=== PATIENT | male | born 1985 | race Caucasian/White ===

== ENCOUNTER 2016-12-20 10:05 | Emergency (ER) | payer OTHER ==
[2016-12-20] MEDS ORDERED: HYDROmorphone 1 MG/ML SYRINGE IVP STA ×2 (10:52→12:21)
[2016-12-20] MEDS ORDERED: KETOROLAC 60 MG/2 ML VIAL IVP STA (10:52)
[2016-12-20] MEDS ORDERED: diazePAM INJ 5 MG/ML SYRINGE IVP STA (10:52)
[2016-12-20] MEDS ORDERED: KETOROLAC 30 MG/ML VIAL ONE (11:10)
[2016-12-20] MEDS ORDERED: HYDROmorphone 1 MG/ML SYRINGE ONE ×2 (11:10→12:30)
[2016-12-20] MEDS ORDERED: diazePAM INJ 5 MG/ML SYRINGE ONE (11:11)
[2016-12-20] MEDS ORDERED: metroNIDAZOLE 250 MG TABLET PO STA (12:22)
[2016-12-20] MEDS ORDERED: DIPHENOX/ATROPINE 2.5/0.025 MG TABLET PO STA (12:22)
[2016-12-20] MEDS ORDERED: DIPHENOX/ATROPINE 2.5/0.025 MG TABLET PO ONE (12:30)
[2016-12-20] MEDS ORDERED: metroNIDAZOLE 250 MG TABLET PO ONE (12:30)
== END 2016-12-20 13:18 | disposition home or self-care (01) ==
DX: M54.5 Low back pain (principal); G89.29 Other chronic pain; W01.0XXA Fall on same level from slipping, tripping and stumbling without subsequent striking against object, initial encounter; Y92.017 Garden or yard in single-family (private) house as the place of occurrence of the external cause; R19.7 Diarrhea, unspecified; I10 Essential (primary) hypertension; Z87.891 Personal history of nicotine dependence
CPT/HCPCS: 36415; 72100; 80053; 81003; 83690; 96374; 96375; 96376; 99283; 99284; A9270; J1170

== ENCOUNTER 2017-05-18 20:28 | Emergency (ER) | payer OTHER ==
[2017-05-18 20:46] VITALS: BP 137/80
[2017-05-18] MEDS ORDERED: KETOROLAC 60 MG/2 ML VIAL IM STA (21:05)
[2017-05-18] MEDS ORDERED: CYCLOBENZAPRINE 10 MG TABLET PO STA (21:06)
[2017-05-18] MEDS ORDERED: CYCLOBENZAPRINE 10 MG TABLET PO ONE (21:20)
[2017-05-18] MEDS ORDERED: KETOROLAC 60 MG/2 ML VIAL ONE (21:20)
--- NOTE | 2017-05-18 22:10 | XRAY Preliminary Report ---
Exam: XR Knee 3 View RT IMPRESSION: 1. Lateral tilting of the patella and probable joint effusion. 2. No fracture seen. [facility] SITE ID: [id number]
--- NOTE | 2017-05-18 22:12 | XRAY Report ---
EXAM: RIGHT KNEE RADIOGRAPHY EXAM DATE: 05/18/2017 09:30 PM. CLINICAL HISTORY: Fell, twisted knee, worsening pain. COMPARISON: None. TECHNIQUE: 3 views. FINDINGS: Bones: No acute fracture seen. Joints: Lateral tilting of the patella. No orin dislocation. Probable joint effusion. No significant joint space narrowing. Soft Tissues: Mild soft tissue swelling. IMPRESSION: 1. Lateral tilting of the patella and probable joint effusion. 2. No fracture seen. [facility] Referring Provider Line: [phone] SITE ID: [id number]
--- NOTE | 2017-05-19 21:36 | ED Physician Documentation ---
PD HPI BACK PAIN - Stated complaint Stated Complaint: BACK/KNEE PX - Chief complaint Chief Complaint: Back Pain - History obtained from History obtained from: Patient, Friend - History of Present Illness Timing - onset: How many days ago (2) Timing - details: Abrupt onset, Still present Location: Lower, Right Quality: Pain, Spasm, Similar to prior episodes Associated symptoms: No: Fever, Weakness, Numbness, Incontinent of urine, Incontinent of stool Worsened by: Movement Contributing factors: Other (fall) Similar symptoms before: Work up / diagnostics, Treatment, Follow up Recently seen: Clinic - Additional information Additional information: Patient is a 31 year old male with a history of chronic back pain, and multiple back surgeries who is presenting to the emergency department for back pain. patient states that he stepped in a hole a few days ago and fell hurting his right knee and causing his back to spasm. Review of Systems Constitutional: denies: Fever, Chills, Myalgias Eyes: denies: Loss of vision Ears: denies: Ear pain, Drainage/discharge Nose: denies: Rhinorrhea / runny nose, Congestion Cardiac: denies: Chest pain / pressure, Palpitations Respiratory: denies: Cough GI: denies: Nausea, Vomiting : denies: Dysuria, Unable to Void, Incontinent Skin: denies: Rash, Lesions, Abrasion (s) Musculoskeletal: reports: Back pain, Extremity pain, Joint pain, Joint swelling Neurologic: denies: Generalized weakness, Focal weakness, Numbness, Headache, Head injury, LOC Immunocompromised: denies: Immunocompromised PD PAST MEDICAL HISTORY - Past Medical History Past Medical History: Yes Cardiovascular: Hypertension Respiratory: None Neuro: None Endocrine/Autoimmune: None GI: None : None HEENT: None Psych: Anxiety, ADD/ADHD, Post traumatic stress disorder Musculoskeletal: Chronic back pain Derm: None - Past Surgical History Past Surgical History: Yes General: Appendectomy Ortho: Spine surgery - Present Medications Home Medications: Ambulatory Orders Medication Instructions Recorded Confirmed LORazepam [Ativan] 1 tab PO DAILY 05/18/17 05/18/17 Olanzapine 10 mg PO DAILY 05/18/17 05/18/17 Pregabalin [Lyrica] 50 mg PO TID 05/18/17 05/18/17 Sertraline HCl [Zoloft] 100 mg PO DAILY 05/18/17 05/18/17 - Allergies Allergies/Adverse Reactions: Allergies Allergy/AdvReac Type Severity Reaction Status Date / Time amoxicillin trihydrate * Allergy Nausea Verified 05/18/17 20:46 [From Augmentin] potassium clavulanate * Allergy Nausea Verified 05/18/17 20:46 [From Augmentin] - Social History Does the pt smoke?: Yes Smoking Status: Former smoker Does the pt drink ETOH?: Yes Does the pt have substance abuse?: No - Immunizations Immunizations are current?: Yes - POLST Patient has POLST: No PD ED PE NORMAL - Vitals Vital signs reviewed: Yes - General General: Alert and oriented X 3, Well developed/nourished - HEENT HEENT: Atraumatic, PERRL - Neck Neck: Supple, no meningeal sign - Cardiac Cardiac: RRR, No murmur - Respiratory Respiratory: No respiratory distress - Abdomen Abdomen: Soft - Derm Derm: Normal color, Warm and dry, No rash - Neuro Neuro: Alert and oriented X 3, No motor deficit, No sensory deficit, Normal speech PD ED PE EXPANDED - Back Back: Soft tissue tenderness (tenderness to palpation of right paraspinal lumbar muscles) - Extremities Extremities: Right knee (right knee pain and swelling) Results - Vitals Vitals: Oxygen O2 Source Room air - Rads (name of study) knee x-ray Radiology: Final report received (no acute fracture or dislocation) PD MEDICAL DECISION MAKING - ED course Complexity details: reviewed old records, reviewed results, re-evaluated patient , d/w patient ED course: Patient was seen and examined at bedside. Patient was treated with toradol and flexeril. Imaging was ordered. When patient returned from imaging the results were reviewed. Patient stated that he was still in pain. patient was told that he would not be prescribed narcotics. Patient stated he was leaving and got up and walked out. Departure - Departure Disposition: Against Medical Advice Clinical Impression: Lumbosacral radiculopathy at L5 Condition: Stable Instructions: ED Low Back Pain Injury Discharge Date/Time: 05/18/17 22:11
== END 2017-05-18 22:11 | disposition left against medical advice (07) ==
LOC: ED 20:28
DX: M54.17 Radiculopathy, lumbosacral region (principal); Z53.29 Procedure and treatment not carried out because of patient's decision for other reasons; I10 Essential (primary) hypertension; Z87.891 Personal history of nicotine dependence
CPT/HCPCS: 73562; 96372; 99282; 99283; A9270

== ENCOUNTER 2017-07-23 16:27 | Emergency (ER) | payer OTHER ==
[2017-07-23] MEDS ORDERED: LIDOCAINE 1%-EPI 1:100000 20 ML MDV SUBQ STA (17:30)
--- NOTE | 2017-07-23 17:30 | ED Physician Documentation ---
PD HPI Fall - Stated complaint Stated Complaint: HEAD INJ - Chief complaint Chief Complaint: Trauma Hd/Nk - History obtained from History obtained from: Patient - History of Present Illness Mechanism of injury: Tripped (he lost balance and fell backward on stairs, striking back of head and thoracolumbar area of back. Has underlying lumbar pain but is having considerable pain over baseline with this, and in area higher than usual (typically just low lumbar).) Fall distance: Standing position Timing - onset: Today Injury(ies) location: Head, Back. No: Neck, Chest, Abdomen Quality of pain: Pain Associated symptoms: AMS (felt dazed for few minutes.). No: LOC, Neck pain, Weakness, Paresthesias Worsens with: Movement Contributing factors: No: Anticoagulated, Intoxicated Recently seen: Not recently seen Review of Systems Constitutional: denies: Fever Nose: denies: Rhinorrhea / runny nose, Congestion Throat: denies: Sore throat Cardiac: denies: Chest pain / pressure Respiratory: denies: Cough GI: denies: Abdominal Pain, Nausea, Vomiting, Diarrhea : denies: Dysuria, Incontinent Skin: denies: Abrasion (s), Laceration (s) Neurologic: reports: Numbness (some down left leg laterally and thigh, chronically though.), Headache, Head injury. denies: Focal weakness, Syncope, LOC PD PAST MEDICAL HISTORY - Past Medical History Cardiovascular: Hypertension Respiratory: None Neuro: None Endocrine/Autoimmune: None GI: None : None HEENT: None Psych: Anxiety, ADD/ADHD, Post traumatic stress disorder Musculoskeletal: Chronic back pain (he is on disability due to low back pain and is on daily pain meds.) Derm: None - Past Surgical History Past Surgical History: Yes General: Appendectomy Ortho: Spine surgery - Present Medications Home Medications: Ambulatory Orders Medication Instructions Recorded Confirmed LORazepam [Ativan] 1 tab PO DAILY 05/18/17 05/18/17 Olanzapine 10 mg PO DAILY 05/18/17 05/18/17 Pregabalin [Lyrica] 50 mg PO TID 05/18/17 05/18/17 Sertraline HCl [Zoloft] 100 mg PO DAILY 05/18/17 05/18/17 Lidocaine Patch 5% [Lidoderm Patch] 1 each TOP DAILY #10 patch 07/23/17 Methocarbamol [Robaxin] 500 mg PO Q6H PRN #30 tablet 07/23/17 Oxycodone HCl/Acetaminophen 1 each PO QID PRN #24 tablet 07/23/17 [Percocet 10-325 mg Tablet] - Allergies Allergies/Adverse Reactions: Allergies Allergy/AdvReac Type Severity Reaction Status Date / Time amoxicillin trihydrate * Allergy Nausea Verified 05/18/17 20:46 [From Augmentin] potassium clavulanate * Allergy Nausea Verified 05/18/17 20:46 [From Augmentin] - Social History Does the pt smoke?: No Smoking Status: Former smoker Does the pt drink ETOH?: Yes Does the pt have substance abuse?: Yes Substance Use and Type: Marijuana - Immunizations Immunizations are current?: Yes - POLST Patient has POLST: No PD ED PE NORMAL - Vitals Vital signs reviewed: Yes - General General: Alert and oriented X 3, Well developed/nourished - HEENT HEENT: PERRL, EOMI, Other (tender back of head with local swelling. No bleeding. ) - Neck Neck: Supple, no meningeal sign, No bony TTP, No adenopathy - Cardiac Cardiac: RRR, No murmur - Respiratory Respiratory: Clear bilaterally - Abdomen Abdomen: Soft, Non tender - Back Back: No CVA TTP, Other (tender in lower thoracic and most of lumbar area without obvious bruising. Guarded ROM of the lower back and mid back. ) - Derm Derm: Normal color, Warm and dry - Extremities Extremities: No tenderness to palpate, Normal ROM s pain - Neuro Neuro: Alert and oriented X 3, No motor deficit, No sensory deficit, Other ( knee reflexes present and symmetric. ) Results - Vitals Vitals: Oxygen O2 Source Room air - Rads (name of study) head CT Radiology: Prelim report reviewed (no acute process) thoracic and lumbar spines Radiology: Prelim report reviewed (no fractures) PD MEDICAL DECISION MAKING - ED course Complexity details: reviewed results, considered differential (has underlying low back pain, with fall and is in such pain/distress that hard to tell if new injury v.s exac chronic. Got CTs thoracolumbar where he hurts. No fractures. Normal head CT as well. Given pain meds in ED and short term for his new injury , which presume would be short term from fall. ), d/w patient Departure - Departure Disposition: 01 Home, Self Care Clinical Impression: Acute exacerbation of chronic low back pain Fall from slip, trip, or stumble Qualifiers: Encounter type: initial encounter Qualified Code(s): W01.0XXA - Fall on same level from slipping, tripping and stumbling without subsequent striking against object, initial encounter Head contusion Qualifiers: Encounter type: initial encounter Contusion of head detail: scalp Qualified Code(s): S00.03XA - Contusion of scalp, initial encounter Condition: Stable Record reviewed to determine appropriate education?: Yes Instructions: ED Low Back Pain Injury, ED Contusion Scalp Prescriptions: Lidocaine Patch 5% [Lidoderm Patch] 1 each TOP DAILY #10 patch Methocarbamol [Robaxin] 500 mg PO Q6H PRN #30 tablet PRN Reason: Spasms Oxycodone HCl/Acetaminophen [Percocet 10-325 mg Tablet] 1 each PO QID PRN #24 tablet PRN Reason: Pain Comments: Continue usual medications. Percocet if needed for pain as a day to try to use less if possible. Robaxin muscle relaxant 4 times a day if needed for spasms. Lidocaine patches topically to the low back daily. Follow-up with your primary care regarding follow-up and further medications. Discharge Date/Time: 07/23/17 20:46
[2017-07-23] MEDS ORDERED: LIDOCAINE MPF 1%-EPI 1:200000 30 ML VIAL ONE (17:36)
[2017-07-23] MEDS ORDERED: diazePAM 5 MG TABLET PO STA (17:56)
[2017-07-23] MEDS ORDERED: KETOROLAC 30 MG/ML VIAL IM STA (17:56)
[2017-07-23] MEDS ORDERED: HYDROmorphone 1 MG/ML CARPUJECT IM STA ×2 (17:56→19:25)
[2017-07-23] MEDS ORDERED: KETOROLAC 30 MG/ML VIAL ONE (18:09)
[2017-07-23] MEDS ORDERED: HYDROmorphone 1 MG/ML CARPUJECT ONE ×2 (18:09→19:37)
[2017-07-23] MEDS ORDERED: diazePAM 5 MG TABLET PO ONE (18:09)
--- NOTE | 2017-07-23 19:42 | CT Preliminary Report ---
Exam: CT Lumbar Spine W/O IMPRESSION: No evidence of lumbar spine fracture or dislocation. [facility] SITE ID: [id number]
--- NOTE | 2017-07-23 19:43 | CT Report ---
EXAM: CT LUMBAR SPINE WITHOUT CONTRAST EXAM DATE: 07/23/2017 07:05 PM. CLINICAL HISTORY: Back pain COMPARISONS: 12/20/2016. TECHNIQUE: Thin-section axial images were acquired of the lumbar spine from T12 to S1 without contras t. Post-processing: Coronal and sagittal reformats. Other: None. In accordance with CT protocol optimization, one or more of the following dose reduction techniques w ere utilized for this exam: automated exposure control, adjustment of mA and/or KV based on patient s ize, or use of iterative reconstructive technique. FINDINGS: Alignment: Normal. No scoliosis or spondylolisthesis. Bones: Five [id number] lumbar vertebral bodies are present. No fractures or bone lesions. Disk Levels/Facets: T12-L1: Unremarkable. L1-L2: Unremarkable. L2-L3: Unremarkable. L3-L4: Unremarkable. L4-L5: Unremarkable. L5-S1: Unremarkable. Musculature: Normal. No fatty atrophy. Other: There is hepatic steatosis. IMPRESSION: No evidence of lumbar spine fracture or dislocation. [facility] Referring Provider Line: [phone] SITE ID: [id number]
--- NOTE | 2017-07-23 19:44 | CT Preliminary Report ---
Exam: CT Thoracic Spine W/O IMPRESSION: No evidence of thoracic spine fracture or dislocation. [facility] SITE ID: [id number]
--- NOTE | 2017-07-23 19:46 | CT Preliminary Report ---
Exam: CT Head W/O IMPRESSION: No acute intracranial CT abnormality. [facility] SITE ID: [id number]
--- NOTE | 2017-07-23 19:46 | CT Report ---
EXAM: CT THORACIC SPINE WITHOUT CONTRAST EXAM DATE: 07/23/2017 07:05 PM. CLINICAL HISTORY: Fell back onto buttock, with back pain. COMPARISONS: None. TECHNIQUE: Thin-section axial images were acquired of the thoracic spine from C7 to L1 without contra st. Post-processing: Coronal and sagittal reformats. Other: None. In accordance with CT protocol optimization, one or more of the following dose reduction techniques w ere utilized for this exam: automated exposure control, adjustment of mA and/or KV based on patient s ize, or use of iterative reconstructive technique. FINDINGS: Alignment: No evidence of dislocation. Bones: No fracture or bone lesion. Disk Levels/Facets: No significant degenerative disease. Musculature: Normal. No fatty atrophy. Other: The visualized lungs, mediastinum, and abdominal cavity are unremarkable. IMPRESSION: No evidence of thoracic spine fracture or dislocation. [facility] Referring Provider Line: [phone] SITE ID: [id number]
--- NOTE | 2017-07-23 19:49 | CT Report ---
EXAM: CT HEAD EXAM DATE: 07/23/2017 06:21 PM. CLINICAL HISTORY: Fell back and struck head. COMPARISON: 03/22/2013. TECHNIQUE: Multiaxial CT images were obtained from the foramen magnum to the vertex. IV contrast: Non e. Reformats: Coronal. In accordance with CT protocol optimization, one or more of the following dose reduction techniques w ere utilized for this exam: automated exposure control, adjustment of mA and/or KV based on patient s ize, or use of iterative reconstructive technique. FINDINGS: Parenchyma: No intraparenchymal hemorrhage. No evidence of mass, midline shift, or CT findings of inf arction. George-white differentiation is distinct. Extraaxial Spaces: Normal for age. No subdural or epidural collections identified. Ventricles: Normal in size and position. Sinuses: Imaged paranasal sinuses, orbits, and mastoids show no significant abnormality. Bones: No evidence of fracture or calvarial defect. Other: None. IMPRESSION: No acute intracranial CT abnormality. [facility] Referring Provider Line: [phone] SITE ID: [id number]
[2017-07-23 20:47] VITALS: BP 135/82
== END 2017-07-23 20:46 | disposition home or self-care (01) ==
LOC: ED 16:27
DX: S00.03XA Contusion of scalp, initial encounter (principal); W01.198A Fall on same level from slipping, tripping and stumbling with subsequent striking against other object, initial encounter; M54.5 Low back pain; G89.29 Other chronic pain; I10 Essential (primary) hypertension; Z87.891 Personal history of nicotine dependence
CPT/HCPCS: 70450; 72128; 72131; 96372; 99283; 99284; A9270; J1170

== ENCOUNTER 2018-02-18 11:27 | Emergency (ER) | payer OTHER ==
[2018-02-18] MEDS ORDERED: MORPHINE 2 MG/ML SYRINGE IM STA (11:50)
[2018-02-18] MEDS ORDERED: CYCLOBENZAPRINE 10 MG TABLET PO STA (11:51)
[2018-02-18] MEDS ORDERED: DEXAMETHASONE 10 MG/ML VIAL PO STA (11:51)
--- NOTE | 2018-02-18 11:53 | ED Physician Documentation ---
History of Present Illness - Stated complaint Stated Complaint: FELL LOW BACK PX - Chief complaint Chief Complaint: Back Pain - Additonal information Additional information: 32 male hx back pain several prior surgeries has a senior technical specialist in [facility] appt February 26 was walking dog and stepped in hole and fell on side and aggravated his back pain no HI or neck pain no numbness or weakness no incontinence has numbness to inner thigh and calf R leg which is not new for him no fever no IV meds drugs no recent dental work or surgery hopes to get a MRI today takes motrin percocet and lido patches at home already Review of Systems Constitutional: denies: Fever Cardiac: denies: Chest pain / pressure Respiratory: denies: Dyspnea GI: denies: Abdominal Pain : denies: Incontinent, Hematuria Musculoskeletal: reports: Back pain Endocrine: denies: Easy bruising / bleeding Immunocompromised: denies: Immunocompromised PD PAST MEDICAL HISTORY - Past Medical History Cardiovascular: Hypertension Respiratory: None Neuro: None Endocrine/Autoimmune: None GI: None : None HEENT: None Psych: Anxiety, ADD/ADHD, Post traumatic stress disorder Musculoskeletal: Chronic back pain Derm: None - Past Surgical History Past Surgical History: Yes General: Appendectomy Ortho: Spine surgery - Present Medications Home Medications: Ambulatory Orders Medication Instructions Recorded Confirmed LORazepam [Ativan] 1 tab PO DAILY 05/18/17 05/18/17 OLANZapine [Olanzapine] 10 mg PO DAILY 05/18/17 05/18/17 Pregabalin [Lyrica] 50 mg PO TID 05/18/17 05/18/17 Sertraline HCl [Zoloft] 100 mg PO DAILY 05/18/17 05/18/17 Lidocaine Patch 5% [Lidoderm Patch] 1 each TOP DAILY #10 patch 07/23/17 Methocarbamol [Robaxin] 500 mg PO Q6H PRN #30 tablet 07/23/17 Oxycodone HCl/Acetaminophen 1 each PO QID PRN #24 tablet 07/23/17 [Percocet 10-325 mg Tablet] Carisoprodol [Soma] 350 mg PO Q8H PRN #15 tablet 02/18/18 predniSONE [Deltasone] 40 mg PO DAILY 5 Days tablet 02/18/18 - Allergies Allergies/Adverse Reactions: Allergies Allergy/AdvReac Type Severity Reaction Status Date / Time amoxicillin trihydrate * Allergy Nausea Verified 05/18/17 20:46 [From Augmentin] potassium clavulanate * Allergy Nausea Verified 05/18/17 20:46 [From Augmentin] - Social History Does the pt smoke?: No Smoking Status: Never smoker Does the pt drink ETOH?: Yes Does the pt have substance abuse?: Yes - Immunizations Immunizations are current?: Yes - POLST Patient has POLST: No PD ED PE NORMAL - Vitals Vital signs reviewed: Yes - Cardiac Cardiac: RRR - Respiratory Respiratory: No respiratory distress, Clear bilaterally - Abdomen Abdomen: Soft, Non tender, Other (no pulsatile mass) - Back Back: No spinal TTP, Other (diffuse soft tissue TTP but no focal spine TTP redness or swelling or warmth) - Neuro Neuro: Other (hip flexion knee ext foot dorsi plantar and great toe ext 5/5, patellar DTR 2/2 no ankle clonus, denies saddle anesthesia) Results - Vitals Vitals: Vital Signs - 24 hr 02/18/18 02/18/18 11:31 13:32 Temperature 36.4 C L 36.5 C Heart Rate 101 H 91 Respiratory 16 20 Rate Blood Pressure 155/87 H 137/75 H O2 Saturation 98 97 Oxygen O2 Source Room air Departure - Departure Disposition: Home, Self Care Clinical Impression: Back pain Qualifiers: Back pain location: low back pain Chronicity: acute Back pain laterality: right Sciatica presence: with sciatica Sciatica laterality: sciatica of right side Qualified Code(s): M54.41 - Lumbago with sciatica, right side Condition: Good Instructions: ED Sciatica, ED Low Back Pain Injury Prescriptions: Carisoprodol [Soma] 350 mg PO Q8H PRN #15 tablet PRN Reason: muscle spasm predniSONE [Deltasone] 40 mg PO DAILY 5 Days tablet Comments: Continue the percocet. And the lidocaine patches Take the prednisone which is a steroid to decrease nerve inflammation - do not take motrin while taking the prednisone And try the some which is a muscle relaxant Follow up with your senior technical specialist 02/26 as planned Return if worse
[2018-02-18 13:33] VITALS: BP 137/75
[2018-02-18] MEDS ORDERED: oxyCODONE 5 MG TABLET PO STA (13:34)
== END 2018-02-18 13:41 | disposition home or self-care (01) ==
LOC: ED 11:27
DX: M54.41 Lumbago with sciatica, right side (principal); Z91.81 History of falling; I10 Essential (primary) hypertension
CPT/HCPCS: 96372; 99283; A9270; J2270

== ENCOUNTER 2018-08-05 18:24 | Emergency (ER) | payer OTHER ==
[2018-08-05 19:02] VITALS: BP 150/73
[2018-08-05] MEDS ORDERED: HYDROcod/ACETAM 10 MG/325 MG TABLET PO STA (19:16)
--- NOTE | 2018-08-05 19:20 | ED Physician Documentation ---
History of Present Illness - Stated complaint Stated Complaint: MED REFILL - Chief complaint Chief Complaint: General - Additonal information Additional information: 33-year-old male presented to the emergency department requesting a refill of his chronic pain medication. The patient has no acute complaints and only is requesting refills of his narcotic pain medication. Review of Systems Constitutional: denies: Fever Cardiac: denies: Chest pain / pressure Respiratory: denies: Cough GI: denies: Abdominal Pain PD PAST MEDICAL HISTORY - Past Medical History Past Medical History: Yes Cardiovascular: Hypertension Respiratory: None Neuro: None Endocrine/Autoimmune: None GI: None : None HEENT: None Psych: Anxiety, ADD/ADHD, Post traumatic stress disorder Musculoskeletal: Chronic back pain Derm: None - Past Surgical History Past Surgical History: Yes General: Appendectomy Ortho: Spine surgery - Present Medications Home Medications: Ambulatory Orders Medication Instructions Recorded Confirmed LORazepam [Ativan] 1 tab PO DAILY 05/18/17 05/18/17 OLANZapine [Olanzapine] 10 mg PO DAILY 05/18/17 05/18/17 Pregabalin [Lyrica] 50 mg PO TID 05/18/17 05/18/17 Sertraline HCl [Zoloft] 100 mg PO DAILY 05/18/17 05/18/17 Lidocaine Patch 5% [Lidoderm Patch] 1 each TOP DAILY #10 patch 07/23/17 Methocarbamol [Robaxin] 500 mg PO Q6H PRN #30 tablet 07/23/17 Oxycodone HCl/Acetaminophen 1 each PO QID PRN #24 tablet 07/23/17 [Percocet 10-325 mg Tablet] Carisoprodol [Soma] 350 mg PO Q8H PRN #15 tablet 02/18/18 predniSONE [Deltasone] 40 mg PO DAILY 5 Days tablet 02/18/18 - Allergies Allergies/Adverse Reactions: Allergies Allergy/AdvReac Type Severity Reaction Status Date / Time amoxicillin trihydrate * Allergy Nausea Verified 08/05/18 19:02 [From Augmentin] potassium clavulanate * Allergy Nausea Verified 08/05/18 19:02 [From Augmentin] - Social History Does the pt smoke?: No Smoking Status: Never smoker Does the pt drink ETOH?: Yes Does the pt have substance abuse?: Yes - Immunizations Immunizations are current?: Yes - POLST Patient has POLST: No PD ED PE NORMAL - General General: Alert and oriented X 3 - HEENT HEENT: Atraumatic - Respiratory Respiratory: No respiratory distress - Neuro Neuro: Alert and oriented X 3, Normal speech Results - Vitals Vitals: Vital Signs - 24 hr 08/05/18 18:59 Temperature 36.6 C Heart Rate 88 Respiratory 16 Rate Blood Pressure 150/73 H O2 Saturation 97 Oxygen O2 Source Room air PD MEDICAL DECISION MAKING - ED course ED course: I declined to refill the patient's narcotic pain medication. I did give the patient 1 dose of hydrocodone in the emergency department and explained that we do not refill chronic pain medications in the emergency department. The patient was upset. I recommended following up with his prescriber tomorrow. I discussed warning signs and recommended returning for any worsening or any concerns. Departure - Departure Disposition: 01 Home, Self Care Clinical Impression: Request for narcotic pain medication Condition: Good Instructions: Chronic Pain Comments: Please contact your prescribing physician for refills of your narcotic pain medications. Please return to the emergency department for any worsening or concerns
== END 2018-08-05 19:27 | disposition home or self-care (01) ==
LOC: ED 18:24
DX: M54.9 Dorsalgia, unspecified (principal); G89.29 Other chronic pain; I10 Essential (primary) hypertension
CPT/HCPCS: 99281; 99282; A9270

== ENCOUNTER 2019-06-16 18:39 | Emergency (ER) | payer OTHER ==
[2019-06-16] MEDS ORDERED: CYCLOBENZAPRINE 10 MG TABLET PO STA (19:32)
[2019-06-16] MEDS ORDERED: MELOXICAM 7.5 MG TABLET PO STA (19:32)
--- NOTE | 2019-06-16 19:33 | XRAY Report ---
Reason: fall, L ankle pain Procedure Date: 06/16/2019 Accession Number: [id number] / [id number] Procedure: XR - Ankle 3 View LT CPT Code: FULL RESULT: EXAM: LEFT ANKLE RADIOGRAPHY EXAM DATE: 06/16/2019 07:14 PM. CLINICAL HISTORY: Fall with twisting injury earlier today. Pain and swelling. COMPARISON: None. TECHNIQUE: 3 views. FINDINGS: Bones: Linear lucency extending in the oblique coronal plane through the posterior margin of the talus. Joints: Normal. No effusion. No subluxations. The ankle mortise is normally aligned. Soft Tissues: Normal. No soft tissue swelling. IMPRESSION: Possible hairline fracture posterior margin of the talus versus an unusual os tibialis. Correlate clinically to determine significance. [facility]
--- NOTE | 2019-06-16 19:34 | ED Physician Documentation ---
PD HPI LOWER EXT INJURY - Stated complaint Stated Complaint: L ANKLE INJURY - Chief complaint Chief Complaint: Ext Problem - History obtained from History obtained from: Patient, Family - History of Present Illness PD HPI LOW EXT INJURY LOCATION: Left, Ankle Type of injury: Twist Where injury occurred: Street Timing - onset: How many hours ago (1) Timing - duration: Hours (1) Timing - details: Abrupt onset Pain level max: 6 Pain level now: 5 Improved by: Rest, Ice, Immobilization Worsened by: Moving, Palpating Associated symptoms: No: Weakness, Numbness, Tingling, Swelling Contributing factors: No: Anticoagulated Recently seen: Not recently seen - Additional information Additional information: tripped and fell Review of Systems Constitutional: denies: Fever, Chills GI: denies: Vomiting, Diarrhea Skin: denies: Rash Musculoskeletal: denies: Neck pain, Back pain Neurologic: denies: Headache PD PAST MEDICAL HISTORY - Past Medical History Cardiovascular: Hypertension Respiratory: None Neuro: None Endocrine/Autoimmune: None GI: None : None HEENT: None Psych: Anxiety, ADD/ADHD, Post traumatic stress disorder Musculoskeletal: Chronic back pain Derm: None - Past Surgical History Past Surgical History: Yes General: Appendectomy Ortho: Spine surgery - Present Medications Home Medications: Ambulatory Orders Medication Instructions Recorded Confirmed LORazepam [Ativan] 1 tab PO DAILY 05/18/17 05/18/17 OLANZapine [Olanzapine] 10 mg PO DAILY 05/18/17 05/18/17 Pregabalin [Lyrica] 50 mg PO TID 05/18/17 05/18/17 Sertraline HCl [Zoloft] 100 mg PO DAILY 05/18/17 05/18/17 Lidocaine Patch 5% [Lidoderm Patch] 1 each TOP DAILY #10 patch 07/23/17 Methocarbamol [Robaxin] 500 mg PO Q6H PRN #30 tablet 07/23/17 Oxycodone HCl/Acetaminophen 1 each PO QID PRN #24 tablet 07/23/17 [Percocet 10-325 mg Tablet] Carisoprodol [Soma] 350 mg PO Q8H PRN #15 tablet 02/18/18 predniSONE [Deltasone] 40 mg PO DAILY 5 Days tablet 02/18/18 Meloxicam [Mobic] 15 mg PO DAILY PRN #20 tablet 06/16/19 Oxycodone HCl/Acetaminophen 1 - 2 each PO Q6H PRN #20 tablet 06/16/19 [Percocet 5-325 mg Tablet] - Allergies Allergies/Adverse Reactions: Allergies Allergy/AdvReac Type Severity Reaction Status Date / Time amoxicillin trihydrate * Allergy Nausea Verified 06/16/19 18:58 [From Augmentin] potassium clavulanate * Allergy Nausea Verified 06/16/19 18:58 [From Augmentin] - Social History Does the pt smoke?: No Smoking Status: Never smoker Does the pt drink ETOH?: Yes Does the pt have substance abuse?: Yes - Immunizations Immunizations are current?: Yes - POLST Patient has POLST: No PD ED PE NORMAL - Vitals Vital signs reviewed: Yes - General General: Alert and oriented X 3, No acute distress - HEENT HEENT: Moist mucous membranes - Neck Neck: Supple, no meningeal sign - Derm Derm: Warm and dry - Extremities Extremities: Other (L ankle - mild TTP distal fibula and lateral malleolus. nvi. normal foot and knee. also TTP posterior talus. o/w normal ankle exam. ) - Neuro Neuro: Alert and oriented X 3 - Psych Psych: Normal mood, Normal affect Results - Vitals Vitals: Oxygen O2 Source Room air - Rads (name of study) R ankle xray Radiology: Prelim report reviewed, EMP read contemporaneously, See rad report (Possible hairline fracture posterior margin of the talus versus an unusual os tibialis. Correlate clinically to determine significance. ) Procedures - Splint (location) L ankle Splint applied by: Physician, Tech Type of splint: Fiberglass, Short leg, Posterior, Stirrup Other: Patient tolerated well, No complications, Neurovascular intact, Crutches provided PD MEDICAL DECISION MAKING - ED course Complexity details: reviewed results, re-evaluated patient, considered differential, d/w patient ED course: 33-year-old male with what appears to be a hairline fracture through the posterior margin of the talus. He is tender at this spot. Was therefore placed in a posterior splint with stirrups. Neurovascularly intact after splint application. Provided crutches. Will prescribe pain medication for home and follow-up with orthopedics. Patient counseled regarding signs and symptoms for which I believe and urgent re-evaluation would be necessary. Patient with good understanding of and agreement to plan and is comfortable going home at this time This document was made in part using voice recognition software. While efforts are made to proofread this document, sound alike and grammatical errors may occur. Departure - Departure Disposition: 01 Home, Self Care Clinical Impression: Talar dome fracture Qualifiers: Encounter type: initial encounter Fracture type: closed Fracture alignment: nondisplaced Laterality: right Qualified Code(s): S92.144A - Nondisplaced dome fracture of right talus, initial encounter for closed fracture Condition: Good Instructions: ED Fx Foot Follow-Up: [facility] [Provider Group] - Within 1 week Prescriptions: Meloxicam [Mobic] 15 mg PO DAILY PRN #20 tablet PRN Reason: pain Oxycodone HCl/Acetaminophen [Percocet 5-325 mg Tablet] 1 - 2 each PO Q6H PRN #20 tablet PRN Reason: pain Comments: Follow-up with orthopedics for further care. Return if you worsen. You may have a nondisplaced fracture of your talar dome. Keep the leg elevated when possible. Use the crutches. You are not to bear weight on the foot. Do not drink alcohol or drive while on narcotic pain medicine. Note that many narcotic pain relievers also contain tylenol/acetaminophen. Please ensure that your total dose of acetaminophen from all sources does not exceed 3 grams (3000mg) per day. You may constipated on this medication, take a stool softener such as "Colace" twice a day while you are on it. Also recommend a elsz-[id number]-[id number] laxative such as senna or MiraLAX any day that you do not have a bowel movement. If you received narcotic pain medication in the emergency department, do not drive or operate machinery for the next 24 hours. Discharge Date/Time: 06/16/19 20:42
[2019-06-16] MEDS ORDERED: MORPHINE 2 MG/ML CARPUJECT IM STA (20:25)
[2019-06-16] MEDS ORDERED: oxyCODONE 5 MG TABLET PO STA (20:25)
[2019-06-16 20:43] VITALS: BP 149/73
== END 2019-06-16 20:42 | disposition home or self-care (01) ==
LOC: ED 18:39
DX: S92.144A Nondisplaced dome fracture of right talus, initial encounter for closed fracture (principal); W01.0XXA Fall on same level from slipping, tripping and stumbling without subsequent striking against object, initial encounter; X50.1XXA Overexertion from prolonged static or awkward postures, initial encounter; Y93.K1 Activity, walking an animal; Y92.410 Unspecified street and highway as the place of occurrence of the external cause; I10 Essential (primary) hypertension
CPT/HCPCS: 73610; 99283; 99284; A9270

== ENCOUNTER 2020-05-24 10:24 | Emergency (ER) | payer OTHER ==
[2020-05-24] MEDS ORDERED: SODIUM CHLORIDE 0.9% 1,000 ML IV STA (11:01)
--- NOTE | 2020-05-24 11:14 | ED Physician Documentation ---
History of Present Illness - Stated complaint Stated Complaint: HEAD PX - Chief complaint Chief Complaint: Neuro - History obtained from History obtained from: Patient - History of Present Illness Timing: Yesterday Pain level max: 10 Pain level now: 10 - Additonal information Additional information: 34-year-old male presents the emergency department stating he has not been eating and drinking well for the past several days. He states he was out working in the yard yesterday when he felt lightheaded, dizzy and passed out. States that he had his head. Has had vomiting since that time and increasing right-sided headache. Nothing makes it better or worse. Patient is also having back spasms. No numbness or tingling. No loss of bowel or bladder control. Review of Systems Constitutional: denies: Fever, Chills Throat: denies: Sore throat Cardiac: denies: Chest pain / pressure, Palpitations Respiratory: denies: Dyspnea, Cough GI: reports: Nausea, Vomiting. denies: Diarrhea Skin: denies: Rash Musculoskeletal: reports: Back pain (Chronic, unchanged). denies: Neck pain Neurologic: denies: Focal weakness, Numbness, Confused, Altered mental status PD PAST MEDICAL HISTORY - Past Medical History Cardiovascular: Hypertension Respiratory: None Neuro: None Endocrine/Autoimmune: None GI: None : None HEENT: None Psych: Anxiety, ADD/ADHD, Post traumatic stress disorder Musculoskeletal: Chronic back pain Derm: None - Past Surgical History Past Surgical History: Yes General: Appendectomy Ortho: Spine surgery - Present Medications Home Medications: Ambulatory Orders Medication Instructions Recorded Confirmed LORazepam [Ativan] 1 tab PO DAILY 05/18/17 05/18/17 OLANZapine [Olanzapine] 10 mg PO DAILY 05/18/17 05/18/17 Pregabalin [Lyrica] 50 mg PO TID 05/18/17 05/18/17 Sertraline HCl [Zoloft] 100 mg PO DAILY 05/18/17 05/18/17 Lidocaine Patch 5% [Lidoderm Patch] 1 each TOP DAILY #10 patch 07/23/17 Oxycodone HCl/Acetaminophen 1 each PO QID PRN #24 tablet 07/23/17 [Percocet 10-325 mg Tablet] methocarbamoL [Robaxin] 500 mg PO Q6H PRN #30 tablet 07/23/17 Carisoprodol [Soma] 350 mg PO Q8H PRN #15 tablet 02/18/18 predniSONE [Deltasone] 40 mg PO DAILY 5 Days tablet 02/18/18 Meloxicam [Mobic] 15 mg PO DAILY PRN #20 tablet 06/16/19 Oxycodone HCl/Acetaminophen 1 - 2 each PO Q6H PRN #20 tablet 06/16/19 [Percocet 5-325 mg Tablet] Cyclobenzaprine [Flexeril] 10 mg PO TID PRN #20 tablet 05/24/20 Meloxicam [Mobic] 15 mg PO DAILY PRN #20 tablet 05/24/20 - Allergies Allergies/Adverse Reactions: Allergies Allergy/AdvReac Type Severity Reaction Status Date / Time amoxicillin trihydrate * Allergy Nausea Verified 05/24/20 10:42 [From Augmentin] potassium clavulanate * Allergy Nausea Verified 05/24/20 10:42 [From Augmentin] - Social History Does the pt smoke?: No Smoking Status: Never smoker Does the pt drink ETOH?: Yes Does the pt have substance abuse?: Yes - Immunizations Immunizations are current?: Yes - POLST Patient has POLST: No PD ED PE NORMAL - Vitals Vital signs reviewed: Yes - General General: Alert and oriented X 3, No acute distress - HEENT HEENT: Moist mucous membranes - Neck Neck: Supple, no meningeal sign - Cardiac Cardiac: RRR, Strong equal pulses - Respiratory Respiratory: No respiratory distress, Clear bilaterally - Abdomen Abdomen: Soft, Non tender, Non distended - Back Back: No spinal TTP (No midline tenderness to palpation. No step-off or deformity. Mild paraspinal spasm bilateral low lumbar.) - Derm Derm: Warm and dry - Extremities Extremities: Other (Normal bilateral lower extremity patellar and ankle jerk reflexes. Normal great toe extension bilaterally. no saddle anesthesia) - Neuro Neuro: Alert and oriented X 3, No motor deficit, No sensory deficit - Psych Psych: Normal mood, Normal affect Results - Vitals Vitals: Vital Signs - 24 hr 05/24/20 05/24/20 05/24/20 10:33 12:00 12:07 Temperature 37.1 C 36.4 C L Heart Rate 96 73 75 Respiratory 14 15 18 Rate Blood Pressure 154/76 H 128/72 128/72 O2 Saturation 100 99 98 05/24/20 05/24/20 05/24/20 12:30 12:51 13:29 Temperature 36.7 C Heart Rate 75 82 80 Respiratory 18 16 18 Rate Blood Pressure 140/85 H 140/85 H 146/71 H O2 Saturation 97 99 99 Oxygen O2 Source Room air - EKG (time done) 1109 Rate: Rate (enter#) (75) Rhythm: NSR [place]: Normal Intervals: Normal OR QRS: Normal Ischemia: ST elevation c/w repol - Labs Labs: Laboratory Tests 05/24/20 05/24/20 05/24/20 11:05 11:05 11:05 WBC 6.5 RBC 4.50 L Hgb 14.9 Hct 43.5 MCV 96.7 H MCH 33.1 H MCHC 34.3 RDW 13.2 Plt Count 231 MPV 9.7 Neut # (Auto) 4.8 Lymph # (Auto) 1.0 L [place] # (Auto) 0.5 Eos # (Auto) 0.2 Baso # (Auto) 0.0 Absolute Nucleated RBC 0.00 Nucleated RBC % 0.0 Sodium 139 Potassium 3.4 L Chloride 105 Carbon Dioxide 27 Anion Gap 7.0 BUN 8 Creatinine 0.8 Estimated GFR (MDRD) 111 Glucose 129 H Calcium 8.9 Total Bilirubin 0.5 AST 36 ALT 51 Alkaline Phosphatase 42 Troponin I High Sens 2.3 Total Protein 6.7 Albumin 4.0 Globulin 2.7 Albumin/Globulin Ratio 1.5 Lipase 60 H - Rads (name of study) Head CT Radiology: Prelim report reviewed, EMP read contemporaneously, See rad report (No acute abnormality) cxr Radiology: Prelim report reviewed, EMP read contemporaneously, See rad report ( No acute abnormality) PD MEDICAL DECISION MAKING - ED course Complexity details: reviewed results, re-evaluated patient, considered di fferential, d/w patient ED course: 34-year-old male status post a syncopal event yesterday. No acute findings on EKG, telemetry. Feels better after IV fluids. Headache and back pain resolved with Valium and Toradol. Ambulating well. No neurological deficits. We will continue supportive care and have him follow-up with his doctor for further care. Patient counseled regarding signs and symptoms for which I believe and urgent re-evaluation would be necessary. Patient with good understanding of and agreement to plan and is comfortable going home at this time This document was made in part using voice recognition software. While efforts are made to proofread this document, sound alike and grammatical errors may occur. Departure - Departure Disposition: 01 Home, Self Care Clinical Impression: Back spasm Closed head injury Qualifiers: Encounter type: initial encounter Qualified Code(s): S09.90XA - Unspecified injury of head, initial encounter Syncope Qualifiers: Syncope type: unspecified Qualified Code(s): R55 - Syncope and collapse Condition: Good Instructions: ED Spasm Back No Trauma, ED Head Injury Closed Follow-Up: MICHAEL CLAY ARNP [Primary Care Provider] - Within 1 week Prescriptions: Cyclobenzaprine [Flexeril] 10 mg PO TID PRN #20 tablet PRN Reason: Spasms Meloxicam [Mobic] 15 mg PO DAILY PRN #20 tablet PRN Reason: pain Comments: Return if you worsen. Follow-up with your doctor for further care. Discharge Date/Time: 05/24/20 13:31
[2020-05-24 11:15] LABS: BASOPHILS % (AUTO) 0.5 %; EOSINOPHILS # (AUTO) 0.2 10^3/uL (0.0-0.7); EOSINOPHILS % (AUTO) 3.2 %; HGB - HEMOGLOBIN 14.9 g/dL (14.0-18.0); LYMPHOCYTES % (AUTO) 14.8 %; MEAN CORPUSCULAR HEMOGLOBIN 33.1 pg (27.0-31.0); MEAN CORPUSCULAR HGB CONC 34.3 g/dL (32.0-36.0); MEAN CORPUSCULAR VOLUME 96.7 fL (80.0-94.0); MEAN PLATELET VOLUME 9.7 fL (7.4-11.4); MONOCYTES # (AUTO) 0.5 10^3/uL (0.0-1.0); MONOCYTES % (AUTO) 7.4 %; NEUTROPHILS # (AUTO) 4.8 10^3/uL (1.5-6.6); NEUTROPHILS % (AUTO) 73.8 %; PLT - PLATELET COUNT 231 10^3/uL (130-450); RED CELL DISTRIBUTION WIDTH 13.2 % (12.0-15.0); WHITE BLOOD COUNT 6.5 x10^3/uL (4.8-10.8)
[2020-05-24 11:31] LABS: ALBUMIN/GLOBULIN RATIO 1.5 (1.0-2.2); BILIRUBIN,TOTAL 0.5 mg/dL (0.2-1.0); CALCIUM 8.9 mg/dL (8.5-10.3); CREATININE 0.8 mg/dL (0.6-1.2); TOTAL PROTEIN 6.7 g/dL (6.7-8.2)
--- NOTE | 2020-05-24 11:42 | CT Report ---
PROCEDURE: HEAD WO INDICATIONS: closed head injury, vomiting TECHNIQUE: Noncontrast 4.5 mm thick angled axial sections acquired from the foramen magnum to the vertex. For r adiation dose reduction, the following was used: automated exposure control, adjustment of mA and/or kV according to patient size. COMPARISON: None. FINDINGS: Image quality: Excellent. CSF spaces: Basal cisterns are patent. No extra-axial fluid collections. Ventricles are normal in size and shape. Brain: No midline shift. No intracranial masses or hemorrhage. George-white matter interface is norm al. Skull and face: Calvarium and visualized facial bones are intact, without suspicious lesions. Focal subcutaneous edema is seen anteriorly, just to the right of midline. There is no underlying skull fr acture. Sinuses: Visualized sinuses and mastoids are clear. IMPRESSION: No acute intracranial hemorrhage. No skull fracture. Focal mild subcutaneous edema in th e right anterior forehead. Reviewed by: Kane Harrington MD on 05/24/2020 11:40 AM PDT Approved by: Kane Harrington MD on 05/24/2020 11:40 AM PDT Station ID: [id number]
[2020-05-24] MEDS ORDERED: KETOROLAC 30 MG/ML VIAL IVP STA (11:59)
--- NOTE | 2020-05-24 11:59 | XRAY Report ---
PROCEDURE: Chest 1 View X-Ray INDICATIONS: Chest Pain TECHNIQUE: One view of the chest was acquired. COMPARISON: None available FINDINGS: Surgical changes and devices: None. Lungs and pleura: No pleural effusions or pneumothorax. The lungs are clear. Mediastinum: Mediastinal contours appear normal. Heart size is normal. Bones and chest wall: No suspicious bony lesions. Overlying soft tissues appear unremarkable. IMPRESSION: No acute disease. Reviewed by: Taylor Beavers MD on 05/24/2020 10:57 AM [facility] Approved by: Taylor Beavers MD on 05/24/2020 10:57 AM [facility] Station ID: [id number]
[2020-05-24] MEDS ORDERED: diazePAM INJ 5 MG/ML SYRINGE IVP STA (12:31)
[2020-05-24 13:31] VITALS: BP 146/71
== END 2020-05-24 13:31 | disposition home or self-care (01) ==
LOC: ED 10:24
DX: R55 Syncope and collapse (principal); S09.90XA Unspecified injury of head, initial encounter; W18.39XA Other fall on same level, initial encounter; Y93.89 Activity, other specified; Y92.007 Garden or yard of unspecified non-institutional (private) residence as the place of occurrence of the external cause; M62.830 Muscle spasm of back; M54.9 Dorsalgia, unspecified; G89.29 Other chronic pain; I10 Essential (primary) hypertension
CPT/HCPCS: 36415; 70450; 71045; 80053; 83690; 84484; 85025; 93005; 96361; 96374; 96375; 99284

== ENCOUNTER 2020-06-06 23:29 | Emergency (ER) | payer OTHER ==
[2020-06-06 23:37] VITALS: BP 122/98
--- NOTE | 2020-06-06 23:46 | ED Physician Documentation ---
History of Present Illness - Stated complaint Stated Complaint: L HAND INJ - Chief complaint Chief Complaint: Trauma Ext - History obtained from History obtained from: Patient - Additonal information Additional information: Patient is a 34-year-old male is right-hand dominant accidentally fell and injured his left hand. Patient reports that he has a small abrasion to his left hand as well he denies any altercations but reports that he just fell reports his tetanus is up-to-date. He also reports that he is very anxious and would like something to "calm him down". Patient denies any auditory or visual hallucinations or any homicidal or suicidal thoughts. Review of Systems Constitutional: reports: Reviewed and negative Eyes: reports: Reviewed and negative Ears: reports: Reviewed and negative Nose: reports: Reviewed and negative Throat: reports: Reviewed and negative Cardiac: reports: Reviewed and negative Respiratory: reports: Reviewed and negative GI: reports: Reviewed and negative : reports: Reviewed and negative Skin: reports: Reviewed and negative Musculoskeletal: reports: Other (left hand injury) Neurologic: reports: Reviewed and negative Psychiatric: reports: Reviewed and negative Endocrine: reports: Reviewed and negative Immunocompromised: reports: Reviewed and negative PD PAST MEDICAL HISTORY - Past Medical History Cardiovascular: Hypertension Respiratory: None Neuro: None Endocrine/Autoimmune: None GI: None : None HEENT: None Psych: Anxiety, ADD/ADHD, Post traumatic stress disorder Musculoskeletal: Chronic back pain Derm: None - Past Surgical History Past Surgical History: Yes General: Appendectomy Ortho: Spine surgery - Present Medications Home Medications: Ambulatory Orders Medication Instructions Recorded Confirmed LORazepam [Ativan] 1 tab PO DAILY 05/18/17 05/18/17 OLANZapine [Olanzapine] 10 mg PO DAILY 05/18/17 05/18/17 Pregabalin [Lyrica] 50 mg PO TID 05/18/17 05/18/17 Sertraline HCl [Zoloft] 100 mg PO DAILY 05/18/17 05/18/17 Lidocaine Patch 5% [Lidoderm Patch] 1 each TOP DAILY #10 patch 07/23/17 Oxycodone HCl/Acetaminophen 1 each PO QID PRN #24 tablet 07/23/17 [Percocet 10-325 mg Tablet] methocarbamoL [Robaxin] 500 mg PO Q6H PRN #30 tablet 07/23/17 Carisoprodol [Soma] 350 mg PO Q8H PRN #15 tablet 02/18/18 predniSONE [Deltasone] 40 mg PO DAILY 5 Days tablet 02/18/18 Meloxicam [Mobic] 15 mg PO DAILY PRN #20 tablet 06/16/19 Oxycodone HCl/Acetaminophen 1 - 2 each PO Q6H PRN #20 tablet 06/16/19 [Percocet 5-325 mg Tablet] Cyclobenzaprine [Flexeril] 10 mg PO TID PRN #20 tablet 05/24/20 Meloxicam [Mobic] 15 mg PO DAILY PRN #20 tablet 05/24/20 - Allergies Allergies/Adverse Reactions: Allergies Allergy/AdvReac Type Severity Reaction Status Date / Time amoxicillin trihydrate * Allergy Nausea Verified 06/06/20 23:36 [From Augmentin] potassium clavulanate * Allergy Nausea Verified 06/06/20 23:36 [From Augmentin] - Social History Does the pt smoke?: No Smoking Status: Never smoker Does the pt drink ETOH?: Yes Does the pt have substance abuse?: Yes - Immunizations Immunizations are current?: Yes - POLST Patient has POLST: No PD ED PE NORMAL - Vitals Vital signs reviewed: Yes - General General: Alert and oriented X 3, No acute distress - HEENT HEENT: PERRL, Moist mucous membranes - Neck Neck: Supple, no meningeal sign - Cardiac Cardiac: RRR, No murmur, Strong equal pulses - Respiratory Respiratory: No respiratory distress, Clear bilaterally - Abdomen Abdomen: Normal bowel sounds, Soft, Non tender, Non distended - Derm Derm: Warm and dry - Extremities Extremities: Other (Swelling noted to the dorsal medial aspect of the left hand over the distal portion of the 5th meta carpal.There is an abrasion noted to the skin no laceration noted.Compartment soft, neurovascular intact sensation intact light touch) - Neuro Neuro: Alert and oriented X 3 - Psych Psych: Normal mood, Normal affect Results - Vitals Vitals: Vital Signs - 24 hr 06/06/20 23:33 Temperature 36.7 C Heart Rate 115 H Respiratory 18 Rate Blood Pressure 122/98 H O2 Saturation 96 Oxygen O2 Source Room air PD MEDICAL DECISION MAKING - ED course Complexity details: considered differential (Metacarpal fracture), other (patient eloped prior to splint placement. ) Departure - Departure Disposition: ED [place] Clinical Impression: Anxiety Hand fracture, left Qualifiers: Encounter type: initial encounter Fracture type: closed Qualified Code(s): S 62.92XA - Unspecified fracture of left wrist and hand, initial encounter for closed fracture Condition: Stable Discharge Date/Time: 06/07/20 00:26
[2020-06-06] MEDS ORDERED: LORazepam 1 MG TABLET PO STA (23:50)
[2020-06-06] MEDS ORDERED: BACITRACIN ZINC OINT 1 PACKET TOP STA (23:51)
--- NOTE | 2020-06-07 08:44 | XRAY Report ---
PROCEDURE: Hand 3 View LT INDICATIONS: injury TECHNIQUE: 3 views of the hand(s) acquired. COMPARISON: None FINDINGS: Bones: Mildly displaced distal fifth metacarpal head fracture with angulation. No suspicious bony les ions. Soft tissues: No suspicious soft tissue calcifications. IMPRESSION: Mildly angulated distal fifth metacarpal head fracture. The above findings are concordant with preliminary report. Reviewed by: Arlette Gomez MD on 06/07/2020 8:42 AM PDT Approved by: Arlette Gomez MD on 06/07/2020 8:42 AM PDT Station ID: [id number]
== END 2020-06-07 00:26 | disposition left against medical advice (07) ==
LOC: ED 23:29
DX: S62.397A Other fracture of fifth metacarpal bone, left hand, initial encounter for closed fracture (principal); W19.XXXA Unspecified fall, initial encounter; F41.9 Anxiety disorder, unspecified; I10 Essential (primary) hypertension
CPT/HCPCS: 73130; 99283; 99284; A9270

== ENCOUNTER 2020-06-28 01:15 | Emergency (ER) | payer OTHER ==
--- NOTE | 2020-06-28 02:02 | ED Physician Documentation ---
PD HPI UPPER EXT INJURY - Stated complaint Stated Complaint: HAND INJ - Chief complaint Chief Complaint: Trauma Ext - History obtained from History obtained from: Patient - History of Present Illness Location: Left, Hand Type of injury: Blunt / blow Where injury occurred: Home Timing - onset: How many weeks ago (3) Timing - details: Abrupt onset Improved by: Rest Worsened by: Moving, Palpating Associated symptoms: Swelling Recently seen: Emergency Dept - Additonal information Additional information: patient says he injured his left hand 3 weeks ago at home (he is right hand dominant) and he was evaluated in this ED at that time. xrays were performed; patient says before results were discussed with him, he left ED. patient claims he asked for ibuprofen and he was told he could not have this medication and this made him angry and he left. He says he subsequently went to [place] for a family matter and has since returned. He presents due to decreased ROM of the left hand and wants to know how to go about following up with orthopedics. Patient left ED on previous visit before splint could be placed (patient says he was aware of the recommendation for splint placement), but he says he has a splint that he has been wearing since the injury. Review of Systems Musculoskeletal: reports: Extremity pain Neurologic: denies: Focal weakness, Numbness PD PAST MEDICAL HISTORY - Past Medical History Past Medical History: Yes Cardiovascular: Hypertension Respiratory: Sleep apnea Neuro: None Endocrine/Autoimmune: None GI: None : None HEENT: None Psych: Anxiety, ADD/ADHD, Post traumatic stress disorder Musculoskeletal: Chronic back pain Derm: None - Past Surgical History Past Surgical History: Yes General: Appendectomy Ortho: Spine surgery - Present Medications Home Medications: Ambulatory Orders Medication Instructions Recorded Confirmed QUEtiapine [SEROquel] 25 mg PO QPM 06/28/20 06/28/20 traZODone [Desyrel] 50 mg PO HS 06/28/20 06/28/20 - Allergies Allergies/Adverse Reactions: Allergies Allergy/AdvReac Type Severity Reaction Status Date / Time amoxicillin trihydrate * Allergy Nausea Verified 06/06/20 23:36 [From Augmentin] potassium clavulanate * Allergy Nausea Verified 06/06/20 23:36 [From Augmentin] - Social History Does the pt smoke?: Yes Smoking Status: Current every day smoker Does the pt drink ETOH?: Yes Does the pt have substance abuse?: Yes - Immunizations Immunizations are current?: Yes - POLST Patient has POLST: No PD ED PE NORMAL - Vitals Vital signs reviewed: Yes - General General: Alert and oriented X 3, No acute distress, Well developed/nourished PD ED PE EXPANDED - Extremities Extremities: Limited ROM (left fifth digit limited in flexion, adduction.) REINALDO UE/Hands Visual: 1 - deformity (abnormal bony prominence at distal fifth metacarpal), tenderness (mild) Results - Vitals Vitals: Vital Signs - 24 hr 06/28/20 06/28/20 01:21 02:46 Temperature 37.0 C 36.6 C Heart Rate 105 H 94 Respiratory 18 17 Rate Blood Pressure 143/75 H 124/87 H O2 Saturation 97 97 Oxygen O2 Source Room air PD MEDICAL DECISION MAKING - ED course Complexity details: considered differential, d/w patient ED course: I reviewed results of previous hand xray (5th metacarpal fracture). I discussed repeat xrays with him, so as to assess current appearance of the fracture alignment; patient declines, as he prefers to f/u with orthopedic surgeon. This is reasonable, as repeat xrays at this time unlikely to impact the immediate (emergent) treatment. I also discussed placement of a splint in ED, but he declines this, as he has a splint at home and wishes to continue using the splint he has. I explained that I cannot expedite the follow-up process, but would provide our on-call orthopedic surgeon's information for follow-up; I also explained that he can contact his insurance provider ([place]) for specific recommendation/referral Departure - Departure Disposition: 01 Home, Self Care Clinical Impression: Metacarpal bone fracture Qualifiers: Encounter type: initial encounter Metacarpal bone: fifth Fracture type: closed Metacarpal location: neck Fracture alignment: displaced Laterality: left Qualified Code(s): S62.337A - Displaced fracture of neck of fifth metacarpal bone, left hand, initial encounter for closed fracture Condition: Good Instructions: ED Fx Hand Closed Follow-Up: Samir Benjamin MD [Provider Admit Priv/Credential] - (Call this morning to arrange for next available appointment) Discharge Date/Time: 06/28/20 02:47
[2020-06-28 02:46] VITALS: BP 124/87
== END 2020-06-28 02:47 | disposition home or self-care (01) ==
LOC: ED 01:15
DX: S62.337A Displaced fracture of neck of fifth metacarpal bone, left hand, initial encounter for closed fracture (principal); W22.8XXA Striking against or struck by other objects, initial encounter; Y92.009 Unspecified place in unspecified non-institutional (private) residence as the place of occurrence of the external cause; I10 Essential (primary) hypertension; F17.200 Nicotine dependence, unspecified, uncomplicated
CPT/HCPCS: 99282

== ENCOUNTER 2020-08-27 14:02 | Emergency (ER) | payer OTHER ==
--- NOTE | 2020-08-27 14:12 | ED Physician Documentation ---
PD HPI UPPER EXT INJURY - Stated complaint Stated Complaint: LAC LFT WRIST - Chief complaint Chief Complaint: Laceration - History obtained from History obtained from: Patient - History of Present Illness Location: Left, Wrist Type of injury: Laceration (using chisel (wood working tool) and it slipped and jabbed into left volar wrist on proximal thenar area. Denies numbness nor weakness. Had dark brisk bleeding initially until applied direct pressure.) Where injury occurred: Home Timing - onset: Today Associated symptoms: Tingling (feeling some tingling in little finger enroute here.). No: Weakness, Numbness Similar symptoms before: Has not had sx before Review of Systems Skin: reports: Laceration (s) Neurologic: denies: Focal weakness, Near syncope PD PAST MEDICAL HISTORY - Past Medical History Past Medical History: Yes Cardiovascular: Hypertension Respiratory: Sleep apnea Neuro: None Endocrine/Autoimmune: None GI: None : None HEENT: None Psych: Anxiety, ADD/ADHD, Post traumatic stress disorder Musculoskeletal: Chronic back pain Derm: None - Past Surgical History Past Surgical History: Yes General: Appendectomy Ortho: Spine surgery - Present Medications Home Medications: Ambulatory Orders Medication Instructions Recorded Confirmed QUEtiapine [SEROquel] 25 mg PO QPM 06/28/20 06/28/20 traZODone [Desyrel] 50 mg PO HS 06/28/20 06/28/20 - Allergies Allergies/Adverse Reactions: Allergies Allergy/AdvReac Type Severity Reaction Status Date / Time amoxicillin trihydrate * Allergy Nausea Verified 08/27/20 14:05 [From Augmentin] potassium clavulanate * Allergy Nausea Verified 08/27/20 14:05 [From Augmentin] - Social History Does the pt smoke?: Yes Smoking Status: Current every day smoker Does the pt drink ETOH?: Yes Does the pt have substance abuse?: Yes - Immunizations Immunizations are current?: Yes - POLST Patient has POLST: No PD ED PE NORMAL - Vitals Vital signs reviewed: Yes - General General: Alert and oriented X 3, Well developed/nourished - Derm Derm: Normal color, Warm and dry - Extremities Extremities: Other (left proximal thenar area of wrist with 1.3 cm laceration to fatty tissue. Does not appear to involve the muscle. Good thumb movement without weakness. ) - Neuro Neuro: Alert and oriented X 3, No motor deficit, No sensory deficit, Normal speech Results - Vitals Vitals: Vital Signs - 24 hr 08/27/20 08/27/20 14:05 14:39 Temperature 36.5 C 36.9 C Heart Rate 90 99 Respiratory 16 18 Rate Blood Pressure 144/73 H 132/81 H O2 Saturation 98 97 Oxygen O2 Source Room air Procedures - Laceration (location) left wrist Length in cm: 1.4 Wound type: Linear, Into subcut fat, Clean. No: Contaminated Anesthesia: Lidocaine 1% with epi Wound Preparation: Irrigated copiously NS, Wound explored, To the base. No: FB identified Skin layer closure: Nylon, Running, Size #-0 - enter number (4), Sutures - enter # (6) Other: Patient tolerated well, No complications, Neurovascular intact, Dressing applied, Tetanus UTD Complexity: Simple PD MEDICAL DECISION MAKING - ED course Complexity details: considered differential, d/w patient Departure - Departure Disposition: 01 Home, Self Care Clinical Impression: Wrist laceration Qualifiers: Encounter type: initial encounter Laterality: left Qualified Code(s): S61.512A - Laceration without foreign body of left wrist, initial encounter Condition: Stable Record reviewed to determine appropriate education?: Yes Instructions: ED Laceration Hand Comments: It is okay to wash and shower. Clean off the wound twice a day with soap and wa ter, or peroxide and water. Apply some antibiotic ointment to it to keep it moist. Also to watch for signs of infection such as purulence, redness or increasing pain. Return to your primary care or the ER at the specified time for suture removal. Suture removal 8 to 10 days. Tylenol or ibuprofen as needed for pains. Regular activity should be okay with your hands. Discharge Date/Time: 08/27/20 14:39
[2020-08-27 14:39] VITALS: BP 132/81
== END 2020-08-27 14:39 | disposition home or self-care (01) ==
LOC: ED 14:02
DX: S61.512A Laceration without foreign body of left wrist, initial encounter (principal); W27.0XXA Contact with workbench tool, initial encounter; Y92.009 Unspecified place in unspecified non-institutional (private) residence as the place of occurrence of the external cause; I10 Essential (primary) hypertension; F17.200 Nicotine dependence, unspecified, uncomplicated
CPT/HCPCS: 12001; 99281; 99282

== ENCOUNTER 2020-10-04 15:37 | Emergency (ER) | payer OTHER ==
[2020-10-04] MEDS ORDERED: KETOROLAC 60 MG/2 ML VIAL IM STA (15:51)
[2020-10-04] MEDS ORDERED: HYDROmorphone 1 MG/ML CARPUJECT IM STA ×2 (15:51→16:36)
--- NOTE | 2020-10-04 15:56 | ED Physician Documentation ---
PD HPI BACK PAIN - Stated complaint Stated Complaint: GLF,BACK PX - Chief complaint Chief Complaint: Back Pain - History obtained from History obtained from: Patient - Additional information Additional information: 35-year-old gentleman has had a long standing back issues, however recently they have not been so bad. He used to be in pain management for same, but recently is not in pain management as confirmed on his [facility] E form. He was loading garbage cans into his truck today and slipped on the wet bed and fell out of the truck basically onto his tailbone and now has severe low back pain. No other injuries. He has some tingling in the right leg but no weakness, saddle anesthesia, fevers, or incontinence. Review of Systems Constitutional: denies: Fever, Chills Respiratory: denies: Dyspnea, Cough GI: denies: Abdominal Pain, Nausea, Vomiting PD PAST MEDICAL HISTORY - Past Medical History Cardiovascular: Hypertension Respiratory: Sleep apnea Neuro: None Endocrine/Autoimmune: None GI: None : None HEENT: None Psych: Anxiety, ADD/ADHD, Post traumatic stress disorder Musculoskeletal: Chronic back pain Derm: None - Past Surgical History Past Surgical History: Yes General: Appendectomy Ortho: Spine surgery - Present Medications Home Medications: Ambulatory Orders Medication Instructions Recorded Confirmed QUEtiapine [SEROquel] 25 mg PO QPM 06/28/20 06/28/20 traZODone [Desyrel] 50 mg PO HS 06/28/20 06/28/20 Cyclobenzaprine [Flexeril] 10 mg PO TID PRN #20 tablet 10/04/20 HYDROcod/ACETAM 5/325 [Pacifica 5/325] 1 - 2 tab PO Q6H PRN #15 tablet 10/04/20 - Allergies Allergies/Adverse Reactions: Allergies Allergy/AdvReac Type Severity Reaction Status Date / Time amoxicillin trihydrate * Allergy Nausea Verified 10/04/20 15:44 [From Augmentin] potassium clavulanate * Allergy Nausea Verified 10/04/20 15:44 [From Augmentin] - Social History Does the pt smoke?: Yes Smoking Status: Current every day smoker Does the pt drink ETOH?: Yes Does the pt have substance abuse?: Yes - Immunizations Immunizations are current?: Yes - POLST Patient has POLST: No PD ED PE NORMAL - Vitals Vital signs reviewed: Yes - General General: Alert and oriented X 3, Other (He appears uncomfortable and winces with motion. Smells heavily of marijuana.) - Back Back: No CVA TTP, No spinal TTP - Extremities Extremities: Other (The patient has equal and normal Achilles and patellar reflexes bilaterally. Normal sensation in all areas of the legs. Patient denies saddle anesthesia. Normal strength in flexion-extension at the ankles, knees, and flexion of the hips.) - Neuro Neuro: Alert and oriented X 3, Normal speech Results - Vitals Vitals: Vital Signs - 24 hr 10/04/20 10/04/20 10/04/20 15:41 16:51 17:19 Temperature 36.1 C L 36.5 C Heart Rate 126 H 112 H 90 Respiratory 22 20 16 Rate Blood Pressure 145/90 H 93/73 110/72 O2 Saturation 97 100 100 Oxygen O2 Source Room air - Rads (name of study) L spine XR Radiology: EMP read contemporaneously (NAD) PD MEDICAL DECISION MAKING - ED course ED course: 35yo male with chronic back pain, now severe after a fall with landing on the back. XR neg, no frx, no evidence of cauda equina. Given 1mg dilaudid IM and toradol 60mg IM. After that, better, but still uncomfortable, and followed with dilaudid 2mg IM, Ativan 1mg IM. Doing better p that. Discussed need to f/u with pcp and s/sx necessitating urgent reeval. Departure - Departure Disposition: 01 Home, Self Care Clinical Impression: Fall from slip, trip, or stumble, Acute exacerbation of chronic low back pain Condition: Good Record reviewed to determine appropriate education?: Yes Instructions: ED Sprain Strain Lumbar Prescriptions: Cyclobenzaprine [Flexeril] 10 mg PO TID PRN #20 tablet PRN Reason: Spasms HYDROcod/ACETAM 5/325 [Pacifica 5/325] 1 - 2 tab PO Q6H PRN #15 tablet PRN Reason: Pain Comments: Call your doctor to arrange a follow-up appointment, make the next available appointment. In the interim, return anytime if worse or if new symptoms develop. Do not drink or drive while taking narcotic pain medication. Note that many narcotic pain relievers also contain Tylenol/acetaminophen. Please ensure that your total dose of acetaminophen from all sources does not exceed 3 g (3000 mg) per day. You may get constipated while on this medication. Take a stool softener such as Colace twice a day while you are on it. Also add an nuws-tbw-ldjswet laxative such as senna or MiraLAX on any day that you do not have a bowel movement. If you received a narcotic pain medication or sedative while in the emergency department, do not drive for the next 24 hours. Discharge Date/Time: 10/04/20 17:19
--- NOTE | 2020-10-04 16:30 | XRAY Report ---
PROCEDURE: Lumbar Spine 2 View INDICATIONS: back inj TECHNIQUE: 2 views of the lumbar spine were acquired. COMPARISON: None. FINDINGS: Bones: 5 [id number] vertebrae are present. There is normal bony alignment. No vertebral body compression fractures. No suspicious bony lesions. Soft tissues: Overlying bowel gas pattern is normal. No suspicious soft tissue calcifications. IMPRESSION: No fracture or dislocation in lumbar spine. Reviewed by: Kelvin Moe MD on 10/04/2020 4:28 PM PST Approved by: Kelvin Moe MD on 10/04/2020 4:28 PM PST Station ID: [id number]
[2020-10-04] MEDS ORDERED: LORazepam 2 MG/ML VIAL IM STA (16:36)
[2020-10-04 17:20] VITALS: BP 110/72
== END 2020-10-04 17:19 | disposition home or self-care (01) ==
LOC: ED 15:37
DX: M54.5 Low back pain (principal); W17.89XA Other fall from one level to another, initial encounter; Y93.89 Activity, other specified; Y99.0 Civilian activity done for income or pay; G89.29 Other chronic pain; I10 Essential (primary) hypertension; F17.200 Nicotine dependence, unspecified, uncomplicated
CPT/HCPCS: 72100; 96372; 99283; J1170; J2060

== ENCOUNTER 2021-03-11 13:29 | Emergency (ER) | payer OTHER ==
--- NOTE | 2021-03-11 14:20 | XRAY Report ---
PROCEDURE: Lumbar Spine 2 View INDICATIONS: low back pain/injury TECHNIQUE: 2 views of the lumbar spine were acquired. COMPARISON: None. FINDINGS: Bones: 5 [id number]-[id number] vertebrae are present. There is normal bony alignment. No vertebral body compression fractures. No suspicious bony lesions. Soft tissues: Overlying bowel gas pattern is normal. No suspicious soft tissue calcifications. IMPRESSION: Lumbar spine compression fracture or spondylolisthesis. Reviewed by: Kelvin Moe MD on 03/11/2021 2:19 PM PDT Approved by: Kelvin Moe MD on 03/11/2021 2:19 PM PDT Station ID: [id number]
[2021-03-11] MEDS ORDERED: MORPHINE 10 MG/ML VIAL IM STA (14:52)
[2021-03-11] MEDS ORDERED: DEXAMETHASONE 10 MG/ML VIAL PO STA (14:52)
[2021-03-11] MEDS ORDERED: methocarbamoL 500 MG TABLET PO STA (14:52)
--- NOTE | 2021-03-11 14:58 | ED Physician Documentation ---
PD HPI BACK PAIN - Stated complaint Stated Complaint: BACK PX - Chief complaint Chief Complaint: Back Pain - History obtained from History obtained from: Patient - History of Present Illness Timing - onset: How many days ago (4) Timing - duration: Days (4) Timing - details: Gradual onset Pain level max: 9 Pain level now: 9 Location: Lower, Right Quality: Pain, Spasm, Similar to prior episodes Associated symptoms: No: Fever, Weakness, Numbness, Incontinent of urine, Unable to urinate, Hematuria, Incontinent of stool Contributing factors: Lifting. No: Anticoagulated, Cancer, IVDA - Additional information Additional information: Patient states that he cut down and was moving a large tree when his back began to spasm. Has a longstanding history of chronic back pain. Worse with movement, better with rest. No loss of bowel or bladder control. No numbness or tingling. Review of Systems Constitutional: denies: Fever, Chills GI: denies: Vomiting, Diarrhea : denies: Dysuria, Frequency, Unable to Void, Incontinent Skin: denies: Rash Musculoskeletal: denies: Neck pain PD PAST MEDICAL HISTORY - Past Medical History Cardiovascular: Hypertension Respiratory: Sleep apnea Neuro: None Endocrine/Autoimmune: None GI: None : None HEENT: None Psych: Anxiety, ADD/ADHD, Post traumatic stress disorder Musculoskeletal: Chronic back pain Derm: None - Past Surgical History Past Surgical History: Yes General: Appendectomy Ortho: Spine surgery - Present Medications Home Medications: Ambulatory Orders Medication Instructions Recorded Confirmed QUEtiapine [SEROquel] 25 mg PO QPM 06/28/20 03/11/21 traZODone [Desyrel] 50 mg PO HS 06/28/20 03/11/21 Ibuprofen [Motrin] 800 mg PO Q8H PRN #30 tablet 03/11/21 Oxycodone HCl/Acetaminophen 1 - 2 each PO Q6H PRN #14 tablet 03/11/21 [Percocet 5-325 mg Tablet] methocarbamoL [Robaxin] 500 mg PO Q6H PRN #20 tablet 03/11/21 - Allergies Allergies/Adverse Reactions: Allergies Allergy/AdvReac Type Severity Reaction Status Date / Time amoxicillin trihydrate * Allergy Nausea Verified 10/04/20 15:44 [From Augmentin] potassium clavulanate * Allergy Nausea Verified 10/04/20 15:44 [From Augmentin] - Social History Does the pt smoke?: Yes Smoking Status: Current every day smoker Does the pt drink ETOH?: Yes Does the pt have substance abuse?: Yes - Immunizations Immunizations are current?: Yes - POLST Patient has POLST: No PD ED PE NORMAL - Vitals Vital signs reviewed: Yes - General General: Alert and oriented X 3, No acute distress - HEENT HEENT: Moist mucous membranes - Neck Neck: Supple, no meningeal sign - Cardiac Cardiac: RRR, Strong equal pulses - Respiratory Respiratory: No respiratory distress, Clear bilaterally - Abdomen Abdomen: Soft, Non tender, Non distended - Back Back: No spinal TTP (No midline tenderness to palpation or percussion. No step- off or deformity. Paraspinal spasm right lower lumbar.) - Derm Derm: Warm and dry - Extremities Extremities: No edema, No calf tenderness / cord - Neuro Neuro: Alert and oriented X 3, Other (Normal bilateral lower extremity patellar and ankle jerk reflexes. Normal great toe extension bilaterally. no saddle anesthesia) - Psych Psych: Normal mood, Normal affect Results - Vitals Vitals: Vital Signs - 24 hr 03/11/21 03/11/21 13:39 16:05 Temperature 36.1 C L 37.0 C Heart Rate 92 71 Respiratory 18 16 Rate Blood Pressure 124/63 127/65 O2 Saturation 100 100 Oxygen O2 Source Room air - Rads (name of study) Lumbar spine x-ray Radiology: Prelim report reviewed, EMP read contemporaneously, See rad report (No acute abnormality) PD MEDICAL DECISION MAKING - ED course Complexity details: reviewed results, re-evaluated patient, considered differential (No cauda equina, no spinal epidural abscess, no fracture, no aortic dissection or evidence of aneursym rupture), d/w patient ED course: Pain well controlled in the emergency department. Appears to be muscular spasm. No evidence of cauda equina, epidural abscess. No focal neurological deficits. We will place him on pain medication for home and have him follow-up with his doctor for further care. Patient counseled regarding signs and symptoms for which I believe and urgent re-evaluation would be necessary. Patient with good understanding of and agreement to plan and is comfortable going home at this time This document was made in part using voice recognition software. While efforts are made to proofread this document, sound alike and grammatical errors may occur. Departure - Departure Disposition: 01 Home, Self Care Clinical Impression: Back spasm Condition: Good Instructions: ED Low Back Pain Injury Follow-Up: your,doctor in 1 week [Other] Prescriptions: Ibuprofen [Motrin] 800 mg PO Q8H PRN #30 tablet PRN Reason: PAIN &/OR FEVER Oxycodone HCl/Acetaminophen [Percocet 5-325 mg Tablet] 1 - 2 each PO Q6H PRN #14 tablet PRN Reason: pain methocarbamoL [Robaxin] 500 mg PO Q6H PRN #20 tablet PRN Reason: muscle spasm Comments: Follow up with your doctor for further care. Return if you worsen. Do not drink alcohol or drive while on narcotic pain medicine. Note that many narcotic pain relievers also contain tylenol/acetaminophen. Please ensure that your total dose of acetaminophen from all sources does not exceed 3 grams (3000mg) per day. You may constipated on this medication, take a stool softener such as "Colace" twice a day while you are on it. Also recommend a jyiw-lun-nrvgonn laxative such as senna or MiraLAX any day that you do not have a bowel movement. If you received narcotic pain medication in the emergency department, do not drive or operate machinery for the next 24 hours. Discharge Date/Time: 03/11/21 16:06
[2021-03-11] MEDS ORDERED: CHERRY SYRUP 10 ML UDC PO ONE (15:07)
[2021-03-11 16:06] VITALS: BP 127/65
== END 2021-03-11 16:06 | disposition home or self-care (01) ==
LOC: ED 13:29
DX: M62.830 Muscle spasm of back (principal); F17.200 Nicotine dependence, unspecified, uncomplicated
CPT/HCPCS: 72100; 96372; 99283; 99284; A9270